=== PATIENT | male | born 1975 | race Hispanic/Latino ===

== ENCOUNTER 2017-12-22 10:13 | Emergency (ER) | payer MEDICAID ==
[2017-12-22 10:39] VITALS: TEMP 98.2
[2017-12-22] MEDS ORDERED: Bacitracin 500 Units/gm Oint Foilpak UD ONE (10:53)
[2017-12-22] MEDS ORDERED: Bacitracin Ointment 30 GM TUBE TOP ONE (10:55)
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
[2017-12-22] MEDS ORDERED: Oxycodone/Acetaminophen 5/325 mg Tab PO STA (11:43)
--- NOTE | 2017-12-22 12:36 | CT ---
PROCEDURE: CT HEAD WITHOUT CONTRAST. HISTORY: Head injury COMPARISON: None available. TECHNIQUE: Axial computed tomography images were obtained through the head/brain without intravenous contrast. Radiation dose: Total exam DLP 1130.44 mGy-cm. This CT exam was performed using one or more of the following dose reduction techniques: Automated exposure control, adjustment of the mA and/or kV according to patient size, and/or use of iterative reconstruction technique. FINDINGS: HEMORRHAGE: No acute parenchymal, subarachnoid or extra-axial BRAIN: No evidence of large acute infarct. No obvious parenchymal nor extra-axial mass or collection seen on this noncontrast study. VENTRICLES: No obstructive hydrocephalus. CALVARIUM: There are no acute calvarial fractures. Mild right periorbital/ supraorbital and right and mid frontal scalp swelling. Swelling is also seen in the level of the glabella and over the bridge of the nose the PARANASAL SINUSES: Unremarkable as visualized. No significant inflammatory changes. MASTOID AIR CELLS: Unremarkable as visualized. No inflammatory changes. OTHER FINDINGS: None. IMPRESSION: No acute intracranial hemorrhage. There are changes. Mild right periorbital supraorbital and frontal scalp contusion soft tissue swelling
--- NOTE | 2017-12-22 12:38 | RAD ---
HISTORY: chest injury COMPARISON: No prior. TECHNIQUE: Chest PA and lateral FINDINGS: LUNGS: No active pulmonary disease. PLEURA: No significant pleural effusion identified. No pneumothorax apparent. CARDIOVASCULAR: Normal. OSSEOUS STRUCTURES: There is a old healed fracture deformity left posterolateral 10th rib. VISUALIZED UPPER ABDOMEN: Normal. OTHER FINDINGS: None. IMPRESSION: No acute infiltrates or effusions. No evidence of pneumothorax. Old healed fracture deformity left posterolateral 10th rib
[2017-12-22] MEDS ORDERED: Oxycodone/Acetaminophen 5/325 mg Tab ONE (12:48)
--- NOTE | 2017-12-22 13:01 | RAD ---
PROCEDURE: Radiographs of the Lumbar Spine. HISTORY: Low back pain. Trauma COMPARISON: No prior. FINDINGS: BONES: No acute fractures. Minimal levoscoliosis centered at the thoracolumbar junction. DISC SPACES: Lumbar disc spaces are relatively maintained. Minor degenerative spondylosis seen at the lower thoracic levels. Mild facet arthropathy L5-S1 through the L 3 L4 levels in somewhat decreasing order of severity. OTHER FINDINGS: None. IMPRESSION: No acute fractures. Minor degenerative spondylosis as above
[2017-12-22 14:43] VITALS: BP 122/68; PULSE 78; RESP 18
[2017-12-22 16:32] VITALS: O2SAT 97
--- NOTE | 2017-12-24 12:19 | CARD ---
APPROVED REPORT EKG Measurement Heart [id number] [id number] <Conclusion> Normal sinus rhythm Normal ECG
== END 2017-12-22 14:43 | disposition home or self-care (01) ==
LOC: C.ER 10:13
DX: S20.219A Contusion of unspecified front wall of thorax, initial encounter (principal); S30.0XXA Contusion of lower back and pelvis, initial encounter; S01.81XA Laceration without foreign body of other part of head, initial encounter; Y04.0XXA Assault by unarmed brawl or fight, initial encounter

== ENCOUNTER 2017-12-28 23:24 | Emergency (ER) | payer MEDICAID ==
[2017-12-28 23:43] VITALS: TEMP 98.3
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
[2017-12-29] MEDS ORDERED: Morphine 4 MG/ML VIAL IV ONE (00:08)
[2017-12-29] MEDS ORDERED: Sodium Chloride 0.9% 1,000 ML IV ONE (00:09)
[2017-12-29] MEDS ORDERED: Morphine 4 MG/ML VIAL ONE (00:09)
[2017-12-29] MEDS ORDERED: Sodium Chloride 0.9% 1,000 ML ONE (00:26)
[2017-12-29 00:27] LABS: BASO % 0.2 % (0.0-2.0); EOS # 0.1 K/uL (0.0-0.7); EOS % 0.9 % (0.0-4.0); HEMOGLOBIN 13.5 g/dL (12.0-18.0); MEAN CELL VOLUME 94.6 fL (80.0-94.0); MEAN CORPUSCULAR HEMOGLOBIN 31.8 pg (27.0-31.0); MEAN CORPUSCULAR HGB CONC 33.6 g/dL (33.0-37.0); MEAN PLATELET VOLUME 8.3 fL (7.2-11.7); MONO # 0.9 K/uL (0.0-0.8); MONO % 7.3 % (0.0-10.0); NEUT # 9.6 K/uL (1.8-7.0); NEUT % 75.6 % (50.0-75.0); RBC 4.24 Mil/uL (4.40-5.90); RED CELL DISTRIBUTION WIDTH 13.8 % (11.5-14.5); WHITE BLOOD COUNT 12.7 K/uL (4.8-10.8)
[2017-12-29 00:35] LABS: INR 1.1; PROTHROMBIN TIME 12.2 SECONDS (9.7-12.2)
[2017-12-29 00:44] LABS: BLOOD UREA NITROGEN 16 mg/dL (9-20); CALCIUM 9.5 mg/dl (8.6-10.4); GFR AFRICAN-AMERICAN > 60; GFR NON-AFRICAN AMERICAN > 60
--- NOTE | 2017-12-29 00:57 | CT ---
EXAM: CT Head Without Intravenous Contrast CLINICAL HISTORY: 42 years old, male; Pain; Headache and other: Pain; Patient HX: 12-22-17 images sent; Additional info: Fall TECHNIQUE: Axial computed tomography images of the head/brain without intravenous contrast. All CT scans at this facility use one or more dose reduction techniques, viz.: automated exposure control; ma/kV adjustment per patient size (including targeted exams where dose is matched to indication; i.e. head); or iterative reconstruction technique. COMPARISON: CT - HEAD W/O CONTRAST 2017-12-22 12:23 FINDINGS: Brain: Minimal atrophy. No intracranial hemorrhage. No mass. No edema. Ventricles: No hydrocephalus. Bones/joints: No acute fracture. Mastoid air cells: No mastoid effusion. IMPRESSION: 1. No intracranial hemorrhage. 2. See facial bone CT report for additional details.
[2017-12-29 00:59] VITALS: RESP 12
--- NOTE | 2017-12-29 01:01 | CT ---
EXAM: CT Cervical Spine Without Intravenous Contrast CLINICAL HISTORY: 42 years old, male; Pain; Neck pain; Additional info: Fall TECHNIQUE: Axial computed tomography images of the cervical spine without intravenous contrast. All CT scans at this facility use one or more dose reduction techniques, viz.: automated exposure control; ma/kV adjustment per patient size (including targeted exams where dose is matched to indication; i.e. head); or iterative reconstruction technique. Coronal and sagittal reformatted images were created and reviewed. COMPARISON: No relevant prior studies available. FINDINGS: Vertebrae: No acute fracture. Degenerative retrolithesis of lower cervical spine. Discs/spinal canal/neural foramina: [id number] degenerative disc disease within lower cervical spine. Mild indentation thecal sac/cord lower cervical spine. Neuroforaminal narrowing within lower cervical spine. Soft tissues: Unremarkable. Lung apices: Minimal bullous changes within lung apices. Pleural space: Right pneumothorax. IMPRESSION: 1. No fracture of cervical spine. 2. Right pneumothorax. 3. See facial bone CT report for additional details. 4. Incidental/non-acute findings are described above.
[2017-12-29] MEDS ORDERED: Iodixanol 320 MG/ML 100 ML BOTTLE IV ONE (01:28)
[2017-12-29 01:32] LABS: URINE BILIRUBIN NEGATIVE (NEGATIVE); URINE BLOOD 2+ (NEGATIVE); URINE CLARITY Clear (Clear); URINE COLOR Yellow (YELLOW); URINE GLUCOSE (UA) NORMAL (Normal); URINE LEUKOCYTE ESTERASE NEG Leu/uL (Negative); URINE PROTEIN 1+ mg/dL (NEGATIVE); URINE UROBILINOGEN NORMAL mg/dL (0.2-1.0)
--- NOTE | 2017-12-29 01:42 | CT ---
EXAM: CT Maxillofacial Without Intravenous Contrast CLINICAL HISTORY: 42 years old, male; Pain and injury or trauma; Fall; Initial encounter; Laceration and swelling and wound, open; Eyelid and forehead and jaw; Upper left; Right; Cheek bone and eyelid and orbit/periorbital and jaw; Eyelid and jaw; Without residual foreign body; Eye pain and face pain and headache and jaw pain; Additional info: Fall, r jaw pain, ecchimosis left eye TECHNIQUE: Axial computed tomography images of the face without intravenous contrast. All CT scans at this facility use one or more dose reduction techniques, viz.: automated exposure control; ma/kV adjustment per patient size (including targeted exams where dose is matched to indication; i.e. head); or iterative reconstruction technique. Coronal and sagittal reformatted images were created and reviewed. COMPARISON: CT - HEAD W/O CONTRAST 2017-12-22 12:23Facial soft tissue swelling. FINDINGS: Bones/joints: Fracture lateral wall, floor of left orbit. Fracture anterior, posterolateral wall of left maxillary sinus. Fracture right ramus of mandible. Chronic fracture deformity of right zygomatic arch. Chronic fracture deformity of left zygomatic arch. Chronic fracture deformity posterolateral wall of right maxillary sinus. Postsurgical changes of mandible. Soft tissues: Unremarkable. Orbits: Minimal air within left orbit. Sinuses: Mild mucosal thickening of left ethmoid, left frontal sinuses. Air-fluid level within LEFT maxillary sinus. IMPRESSION: 1. Facial fractures as above. 2. Incidental/non-acute findings are described above.
--- NOTE | 2017-12-29 02:23 | CT ---
EXAM: CT Chest With Intravenous Contrast CLINICAL HISTORY: 42 years old, male; Pain; Abdominal pain and other: Right chest pneumothorax; Chest pain; Right-sided chest pain; Additional info: Fall, r pneumo TECHNIQUE: Axial computed tomography images of the chest with intravenous contrast. All CT scans at this facility use one or more dose reduction techniques, viz.: automated exposure control; ma/kV adjustment per patient size (including targeted exams where dose is matched to indication; i.e. head); or iterative reconstruction technique. Coronal and sagittal reformatted images were created and reviewed. CONTRAST: 100 mL of [id number] administered intravenously. COMPARISON: No relevant prior studies available. FINDINGS: Lungs: Partial atelectasis right upper, right middle, right lower lobes. Minimal bullous changes within lung apices. Pleural space: Moderate to large right pneumothorax. Trace RIGHT pleural effusion. Heart: No cardiomegaly. No significant pericardial effusion. Bones/joints: Nondisplaced fracture right ninth rib. Displaced segmental fracture right tenth rib. Soft tissues: Unremarkable. Vasculature: Unremarkable. No aneurysm. Lymph nodes: No pathologically enlarged lymph nodes. IMPRESSION: 1. Right rib fractures with pneumothorax. 2. Incidental/non-acute findings are described above. EXAM: CT Abdomen and Pelvis With Intravenous Contrast CLINICAL HISTORY: 42 years old, male; Pain; Abdominal pain and other: Right chest pneumothorax; Chest pain; Right-sided chest pain; Additional info: Fall, r pneumo TECHNIQUE: Axial computed tomography images of the abdomen and pelvis with intravenous contrast. All CT scans at this facility use one or more dose reduction techniques, viz.: automated exposure control; ma/kV adjustment per patient size (including targeted exams where dose is matched to indication; i.e. head); or iterative reconstruction technique. Coronal and sagittal reformatted images were created and reviewed. CONTRAST: 100 mL of [id number] administered intravenously. COMPARISON: No relevant prior studies available. FINDINGS: ABDOMEN: Liver: Unremarkable. No mass. Gallbladder and bile ducts: No calcified stones. No ductal dilation. Pancreas: No ductal dilation. No mass. Spleen: No splenomegaly. Adrenals: No mass. Kidneys and ureters: No mass. No hydronephrosis. Stomach and bowel: No definite mural thickening. No obstruction. PELVIS: Appendix: No findings to suggest acute appendicitis. Bladder: Unremarkable. Reproductive: Unremarkable as visualized. ABDOMEN and PELVIS: Intraperitoneal space: No significant fluid collection. No free air. Bones/joints: No acute fracture. Soft tissues: Unremarkable. Vasculature: Minimal atherosclerotic disease. No aneurysm. Lymph nodes: No pathologically enlarged lymph nodes. IMPRESSION: 1. No definite CT evidence of visceral injury. 2. Incidental/non-acute findings are described above.
[2017-12-29 03:20] VITALS: BP 102/59; PULSE 54
[2017-12-29 03:36] LABS: BARBITURATES, UR NEGATIVE (NEGATIVE); BENZODIAZEPINES, UR NEGATIVE (NEGATIVE)
[2017-12-29 03:42] VITALS: O2SAT 98
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
[2017-12-29 04:23] LABS: OPIATES, UR POSITIVE (NEGATIVE); PHENCYCLIDINE, UR POSITIVE (NEGATIVE)
== END 2017-12-29 03:47 | disposition left against medical advice (07) ==
LOC: C.ER 23:24
DX: S02.641A Fracture of ramus of right mandible, initial encounter for closed fracture (principal); S02.32XA Fracture of orbital floor, left side, initial encounter for closed fracture; S22.43XA Multiple fractures of ribs, bilateral, initial encounter for closed fracture; S27.0XXA Traumatic pneumothorax, initial encounter; S01.81XA Laceration without foreign body of other part of head, initial encounter; V00.131A Fall from skateboard, initial encounter
CPT/HCPCS: 70450; 70480; 71260; 72125; 74177; 80048; 80324; 80345; 80346; 80349; 80353; 80358; 80361; 81001; 83992; 85025; 85610; 85730; 96361; 96374; 99285; J2270; J7040; Q9967

== ENCOUNTER 2018-01-22 22:43 | Emergency (ER) | payer MEDICAID ==
[2018-01-23 00:39] VITALS: RESP 12
[2018-01-23] MEDS ORDERED: Sodium Chloride 0.9% 1,000 ML IV ONE (00:41)
--- NOTE | 2018-01-23 00:41 | C.PDOC ---
History Of Present Illness Patient presents to the ER with a complaint of not feeling well. Patient notes he had a collapsed right lung approximately 3 weeks ago and has not felt well since then. Denies fever, chills, nausea, or vomiting. Time Seen by Provider: 01/23/18 00:40 Chief Complaint (Nursing): Shortness Of Breath History Per: Patient History/Exam Limitations: no limitations Onset/Duration Of Symptoms: Days Current Symptoms Are (Timing): Still Present Initiating Event: Other (Right collapsed lung) Current Respiratory Medications: None Severity: Moderate Pain Scale Rating Of: 4 Associated Symptoms: denies: Fever, Chills, Other (Nausea, vomiting) Past Medical History Reviewed: Historical Data, Nursing Documentation, Vital Signs Vital Signs: Last Vital Signs Temp 98.4 F 01/22/18 22:54 Pulse 67 01/23/18 04:17 Resp 12 01/23/18 04:17 BP 117/78 01/23/18 04:17 Pulse Ox 99 01/23/18 04:17 - Medical History PMH: Asthma, Bronchitis Surgical History: Appendectomy Family History: States: No Known Family Hx - Social History Hx Alcohol Use: No Hx Substance Use: Yes - Immunization History Hx Tetanus Toxoid Vaccination: Yes Hx Influenza Vaccination: No Hx Pneumococcal Vaccination: No Review Of Systems Constitutional: Positive for: Other (Not feeling well). Negative for: Fever, Chills Cardiovascular: Negative for: Chest Pain, Palpitations Respiratory: Negative for: Cough, Wheezing Gastrointestinal: Negative for: Nausea, Vomiting Physical Exam - Physical Exam Appears: Non-toxic Skin: Warm, Dry Head: Normacephalic Oral Mucosa: Moist Chest: Symmetrical, No Tenderness Cardiovascular: Rhythm Regular Respiratory: Decreased Breath Sounds (Right side), No Rales, No Rhonchi, No Wheezing Gastrointestinal/Abdominal: Soft, No Tenderness Neurological/Psych: Oriented x3 Gait: Other (Ambulatory without any acute respiratory distress) ED Course And Treatment - Laboratory Results Result Diagrams: 01/23/18 01:02 01/23/18 01:02 ECG: Interpreted By Me, Viewed By Me ECG Rhythm: Sinus Rhythm (70), Nonspecific Changes O2 Sat by Pulse Oximetry: 97 (Room air) Pulse Ox Interpretation: Normal - Radiology CXR: Interpreted by Me CXR Interpretation: No: Infiltrates, Fracture, Pnemothorax Progress Note: Blood work, EKG, CXR, and urinalysis ordered. IV fluids administered. Reevaluation Time: 05:13 Reassessment Condition: Improved Disposition Counseled Patient/Family Regarding: Studies Performed, Diagnosis, Need For Followup - Disposition Referrals: Cosmo Bella MD [Primary Care Provider] - Disposition: HOME/ ROUTINE Disposition Time: 00:40 Condition: FAIR Instructions: Polysubstance Abuse (DC) Forms: Pict (Maori) - Clinical Impression Clinical Impression: Polysubstance abuse - Scribe Statement The provider has reviewed the documentation as recorded by the Scribbilly Wall All medical record entries made by the Scribe were at my direction and personally dictated by me. I have reviewed the chart and agree that the record accurately reflects my personal performance of the history, physical exam, medical decision making, and the department course for this patient. I have also personally directed, reviewed, and agree with the discharge instructions and disposition.
[2018-01-23] MEDS ORDERED: Sodium Chloride 0.9% 1,000 ML ONE (00:52)
[2018-01-23 01:07] LABS: BASO # 0.1 K/uL (0.0-0.2); BASO % 0.7 % (0.0-2.0); EOS # 0.2 K/uL (0.0-0.7); EOS % 1.5 % (0.0-4.0); HEMOGLOBIN 12.6 g/dL (12.0-18.0); LYMPH # 2.1 K/uL (1.0-4.3); LYMPH % 15.8 % (20.0-40.0); MEAN CELL VOLUME 94.8 fL (80.0-94.0); MEAN CORPUSCULAR HEMOGLOBIN 31.6 pg (27.0-31.0); MEAN CORPUSCULAR HGB CONC 33.4 g/dL (33.0-37.0); MEAN PLATELET VOLUME 8.5 fL (7.2-11.7); MONO # 0.9 K/uL (0.0-0.8); MONO % 7.3 % (0.0-10.0); NEUT # 9.7 K/uL (1.8-7.0); NEUT % 74.7 % (50.0-75.0); RBC 3.99 Mil/uL (4.40-5.90); RED CELL DISTRIBUTION WIDTH 13.9 % (11.5-14.5)
[2018-01-23 01:18] LABS: INR 1.1; PROTHROMBIN TIME 12.1 SECONDS (9.7-12.2)
[2018-01-23 01:49] LABS: ALB/GLOB RATIO 1.3 (1.0-2.1); ALT/SGPT 14 U/L (21-72); AST/SGOT 46 U/L (17-59); B-TYPE NATRIURETIC PEPTIDE 23.4 pg/mL (0-450); BLOOD UREA NITROGEN 11 mg/dL (9-20); CALCIUM 9.4 mg/dl (8.6-10.4); GFR AFRICAN-AMERICAN > 60; GFR NON-AFRICAN AMERICAN > 60
[2018-01-23 03:14] LABS: URINE BILIRUBIN NEGATIVE (NEGATIVE); URINE BLOOD NEGATIVE (NEGATIVE); URINE CLARITY Clear (Clear); URINE COLOR Yellow (YELLOW); URINE GLUCOSE (UA) NORMAL (Normal); URINE LEUKOCYTE ESTERASE NEG Leu/uL (Negative); URINE PROTEIN NEGATIVE (NEGATIVE); URINE UROBILINOGEN NORMAL mg/dL (0.2-1.0)
[2018-01-23 03:31] LABS: BARBITURATES, UR NEGATIVE (NEGATIVE); BENZODIAZEPINES, UR NEGATIVE (NEGATIVE); OPIATES, UR NEGATIVE (NEGATIVE)
[2018-01-23 03:49] LABS: PHENCYCLIDINE, UR POSITIVE (NEGATIVE)
[2018-01-23 05:34] VITALS: BP 111/71; PULSE 79; TEMP 98; O2SAT 98
--- NOTE | 2018-01-23 08:48 | RAD ---
Chest x-ray single frontal view History: Shortness of breath. Comparison: None available. Findings: Hyperinflation suggestive for COPD and or emphysematous changes. Minimal right basilar atelectasis. Heart size within normal limits. Degenerative changes in the spine. Right hilar prominence. Small nodular density at the right costophrenic angle may represent confluence of shadows with ribs and vessels. Impression: Hyperinflation suggestive for COPD and or emphysematous changes. Minimal right basilar atelectasis. Heart size within normal limits. Degenerative changes in the spine. Right hilar prominence. Small nodular density at the right costophrenic angle may represent confluence of shadows with ribs and vessels.
--- NOTE | 2018-01-24 19:15 | CARD ---
APPROVED REPORT EKG Measurement Heart [id number] <Conclusion> Normal sinus rhythm with sinus arrhythmia Normal Electrocardiogram
== END 2018-01-23 05:33 | disposition home or self-care (01) ==
LOC: C.ER 22:43 → SUPCPDRO 22:43 → C.ER 01-23 05:33
DX: F19.10 Other psychoactive substance abuse, uncomplicated (principal)
CPT/HCPCS: 71045; 80053; 80320; 80324; 80345; 80346; 80349; 80353; 80358; 80361; 81001; 83880; 83992; 85025; 85610; 85730; 93005; 99285; J7030